=== PATIENT | male | born 1960 | race Caucasian/White ===

== ENCOUNTER → 2022-06-05 | Day surgery (SDC) | payer OTHER ==
[2022-06-01 12:06] VITALS: BMI 26.3
[~2022-06-05] MED LIST: DEXAMETHASONE SOD PHOSPHATE 4 MG/1 ML VIAL ONE; ERYTHROMYCIN 0.5% OPHTHALMIC OINTMENT 3.5 GM TUBE ONE; FENTANYL CITRATE/PF 50 MCG/ML VIAL ONE; LACTATED RINGERS SOLUTION 1,000 ML IV SCH; LIDOCAINE 1%-EPI 1:100,000 30 ML MDV IJ ONE; MIDAZOLAM HCL 2 MG/2 ML SINGLE DOSE VIAL ONE; ONDANSETRON 4 MG/2 ML VIAL IVPUSH PRN; ONDANSETRON 4 MG/2 ML VIAL ONE; POVIDONE-IODINE 5% OPHTHALMIC PREP 30 ML SOLUTION ONE; PROPOFOL 20 ML ONE; SUCCINYLCHOLINE CHLORIDE 200 MG/10 ML SYRINGE ONE; TETRACAINE 0.5% OPHTH SOLN 2 ML BOTTLE ONE; ceFAZolin SODIUM 1 GM VIAL ONE; oxyCODONE HCL 5 MG TABLET PO PRN
[2022-06-05 14:51] VITALS: TEMP 97.9
[2022-06-05 15:31] VITALS: BP 108/62; PULSE 56; RESP 16
== END | disposition home or self-care (01) ==
LOC: FASU 09:04
PROVIDERS: ATTEND Ophthalmology
PROC: 080N0ZZ Alteration of Right Upper Eyelid, Open Approach (ICD-10-PCS; 2022-06-05)
PROC: 080P0ZZ Alteration of Left Upper Eyelid, Open Approach (ICD-10-PCS; principal; 2022-06-05 12:51)
DX: H02.423 Myogenic ptosis of bilateral eyelids (principal)
CPT/HCPCS: 94760